=== PATIENT | male | born 1945 | race Caucasian/White ===

== ENCOUNTER → 2017-11-01 | Outpatient (CLI) | payer MEDICARE, OTHER ==
[~2017-11-01] MED LIST: ALLEGRA30 MG PO; ASPIRIN E.C. 8181 MG PO; COUMADIN 1MG1 MG/TAB PO; LIPITOR 10MG10 MG PO; PRILOTC; TOPROL XL 50MG50 MG PO; VITAMINC1000TA PO; ZITHROMAX 250M250 MG PO
== END ==
LOC: COL.RAD 10-29 09:00
DX: M25.552 Pain in left hip (principal)
CPT/HCPCS: J3301; Q9967

== ENCOUNTER 2019-08-29 08:30 | Outpatient (RCR) | payer MEDICARE, OTHER | END 2019-10-20 | disposition home or self-care (01) | LOC: WSC | DX: M16.12 Unilateral primary osteoarthritis, left hip (principal); Z96.642 Presence of left artificial hip joint ==

== ENCOUNTER 2021-05-20 16:27 | Emergency (ER) | payer MEDICARE, OTHER ==
[~2021-05-20] VITALS: Ht 188 cm; Wt 88.6 kg
[2021-05-20 16:45] VITALS: TEMP 98.1
[2021-05-20 17:32] LABS: BASO % 0.8 % (0.0-2.0); EOS # 0.2 K/mm3 (0.0-0.7); EOS % 4.5 % (0-4.0); GRAN # 2.1 K/mm3 (1.4-6.5); GRAN % 42.7 % (42.2-75.2); HEMATOCRIT 38.3 % (42.0-52.0); HEMOGLOBIN 13.5 g/dl (13.5-18.0); LYMPH # 1.9 K/mm3 (1.2-3.4); LYMPH % 39.7 % (20.0-51.0); MEAN CELL VOLUME 97 fl (80.0-100.0); MEAN CORPUSCULAR HEMOGLOBIN 34 pg (27.0-31.0); MEAN CORPUSCULAR HGB CONC 35 g/dl (33.0-37.0); MEAN PLATELET VOLUME 9.3 fl (7.4-10.4); MONO # 0.6 K/mm3 (0.1-0.6); MONO % 12.1 % (1.7-9.3); PLATELET COUNT 186 K/mm3 (130-400); RED BLOOD COUNT 3.94 M/mm3 (4.20-5.60); REDCELL DISTRIBUTION WIDTH-CV 12.7 % (11.5-14.5)
[2021-05-20 17:36] LABS: INR 1.1 (0.8-3.0); PROTHROMBIN TIME 11.8 SECONDS (9.7-12.8)
[2021-05-20 17:38] LABS: PARTIAL THROMBOPLASTIN TIME 31.3 SECONDS (26.0-37.0)
[2021-05-20 18:08] LABS: ALANINE AMINOTRANSFERASE 23 U/L (0-55); ALBUMIN 3.9 gm/dL (3.4-4.8); ALKALINE PHOSPHATASE 62 U/L (0-750); ANION GAP 7 mmol/L (7-16); AST,SGOT 28 U/L (5-34); BILIRUBIN,TOTAL 0.7 mg/dL (0.2-1.2); BLOOD UREA NITROGEN 18 mg/dL (8-26); CARBON DIOXIDE 24 mmol/L (23-31); CHLORIDE 109 mmol/L (98-107); CREATININE, serum 0.93 mg/dL (0.72-1.25); GLUCOSE 96 mg/dL (70-99); SODIUM 140 mmol/L (136-145); TOTAL PROTEIN 6.6 gm/dL (6.2-8.1)
[2021-05-20 18:23] LABS: TROPONIN-I < 0.010 ng/mL (0.00-0.033)
[2021-05-20 18:50] LABS: CALCIUM 10.7 mg/dL (8.4-10.2)
[2021-05-20 20:47] VITALS: BP 143/85; PULSE 70
== END 2021-05-20 20:47 | disposition home or self-care (01) ==
LOC: COL.ER 16:27
PROVIDERS: Student in an Organized Health Care Education/Training Program
DX: I49.3 Ventricular premature depolarization (principal); E78.5 Hyperlipidemia, unspecified; Z86.711 Personal history of pulmonary embolism; Z79.01 Long term (current) use of anticoagulants; Z79.899 Other long term (current) drug therapy
CPT/HCPCS: Q9967

== ENCOUNTER 2023-08-10 09:45 | Outpatient (RCR) | payer MEDICARE, OTHER | END 2023-08-12 | disposition home or self-care (01) | LOC: WSPT | DX: M75.41 Impingement syndrome of right shoulder (principal) ==